=== PATIENT | male | born 1960 | race Caucasian/White ===

== ENCOUNTER 2021-10-25 14:30 | Emergency (ER) | payer OTHER, BC ==
[2021-10-25 14:46] VITALS: TEMP 98.3; BMI 31.0
[2021-10-25] MEDS ORDERED: morphine SULFATE 4 MG/ML VIAL IVPUSH ONE (15:10)
[2021-10-25] MEDS ORDERED: morphine SULFATE 4 MG/ML VIAL ONE ×2 (15:11→18:14)
[2021-10-25 15:46] LABS: BASO % 1.1 % (0-2.0); EOS % 2.1 % (0-4.5); LYMPH % 25.3 % (8-40); MCH 21.1 pg (25.7-33.7); MCHC 31.1 g/dl (32.0-35.9); MEAN CELL VOLUME 67.8 fl (80-96); MEAN PLT VOLUME 6.9 fl (7.5-11.1); MONO % 5.9 % (3.8-10.2); NEUT % 65.6 % (42.8-82.8); PLATELET COUNT 251 10^3/uL (134-434); RBC 6.63 M/mm3 (4.00-5.60); RDW 15.4 % (11.9-15.9); WHITE BLOOD COUNT 6.2 K/mm3 (4.0-10.0)
[2021-10-25 16:07] LABS: BLOOD UREA NITROGEN 17.8 mg/dL (7-18); CALCIUM 9.3 mg/dL (8.5-10.1)
[2021-10-25 16:08] LABS: ALBUMIN 4.1 g/dl (3.4-5.0)
[2021-10-25 16:12] LABS: BILIRUBIN,TOTAL 0.4 mg/dL (0.2-1); TOT PROT 7.9 g/dl (6.4-8.2)
[2021-10-25 16:30] LABS: INR 1.16 (0.83-1.09); PROTHROMBIN TIME (PATIENT) 13.4 SEC (9.7-13.0)
[2021-10-25 16:33] LABS: ACTIVATED PTT 35.1 SECONDS (25.2-36.5)
[2021-10-25 16:36] LABS: ANISOCYTOSIS 2+; MACROCYTOSIS 0
[2021-10-25] MEDS ORDERED: ACETAMINOPHEN 1000 MG/100 ML BAG IVPB ONE (17:10)
[2021-10-25] MEDS ORDERED: ACETAMINOPHEN INJECTION 100 ML IVPB ONE (17:23)
[2021-10-25] MEDS ORDERED: morphine CARPU-JECT 4 MG/1 ML DISP.SYRIN IVPUSH ONE (18:12)
[2021-10-25 19:45] VITALS: BP 166/82; PULSE 86
== END 2021-10-25 19:45 | disposition home or self-care (01) ==
LOC: JER 14:30
PROC: 3E0333Z Introduction of Anti-inflammatory into Peripheral Vein, Percutaneous Approach (ICD-10-PCS; principal; 2021-10-25)
PROC: 3E033NZ Introduction of Analgesics, Hypnotics, Sedatives into Peripheral Vein, Percutaneous Approach (ICD-10-PCS; 2021-10-25)
PROC: 3E033NZ Introduction of Analgesics, Hypnotics, Sedatives into Peripheral Vein, Percutaneous Approach (ICD-10-PCS; 2021-10-25)
DX: S82.841A Displaced bimalleolar fracture of right lower leg, initial encounter for closed fracture (principal); W01.0XXA Fall on same level from slipping, tripping and stumbling without subsequent striking against object, initial encounter; Y93.66 Activity, soccer
CPT/HCPCS: 36415; 73590-TC-RT-FY; 73610-TC-RT-FY; 73630-TC-RT-FY; 73700-TC-RT; 80053; 85025; 85610; 85730; 86850; 86900; 86901; 99285-25